=== PATIENT | female | born 1960 | race Caucasian/White ===

== ENCOUNTER 2022-04-21 13:19 | Inpatient (IN) ==
[2022-04-21] MEDS ORDERED: guaiFENesin/DM ER 600-30 MG TABLET PO PRN (16:05)
[2022-04-21] MEDS ORDERED: DEXTROSE 10% 250 ML BAG IV PRN (16:05)
[2022-04-21] MEDS ORDERED: hydrALAZINE 20 MG/1 ML VIAL IV PRN (16:05)
[2022-04-21] MEDS ORDERED: ONDANSETRON 4 MG/2 ML VIAL IV PRN (16:05)
[2022-04-21] MEDS ORDERED: NICOTINE 21 MG/24 HR PATCH TRANSDERM PRN (16:05)
[2022-04-21] MEDS ORDERED: diphenhydrAMINE CAP 25 MG CAPSULE PO PRN (16:05)
[2022-04-21] MEDS ORDERED: GLUCAGON 1 MG VIAL IM PRN (16:05)
[2022-04-21] MEDS ORDERED: ACETAMINOPHEN 325 MG TABLET PO PRN (16:05)
[2022-04-21] MEDS ORDERED: ALBUTEROL 2.5 MG/3 ML NEB RESP TX PRN (16:05)
[2022-04-21 16:25] LABS: Basophils # 0.1 10*3/uL (0.0-0.2); Basophils % 0.6 % (0.0-0.8); Eosinophils # 0.3 10*3/uL (0.0-0.87); Eosinophils % 2.6 % (0.00-10.9); Hematocrit 35.7 VOL% (35.7-47.0); Hemoglobin 10.8 GM/DL (12.0-16.0); Immature Granulocytes % 0.7 %; Immature Granulocytes Absolute 0.09 #; Lymphocytes # 1.7 10*3/uL (1.4-4.0); Lymphocytes % 13.1 % (21.3-54.2); Mean Corpuscular HGB Conc 30.3 GM/DL (32-36); Mean Corpuscular Volume 95.5 FL (87-102); Mean Platelet Volume 9.7 FL (9.6-12.0); Monocytes % 7.9 % (1.7-12.7); Neutrophils % 75.1 % (38.7-73.9); Platelet Count 264 T/CUMM (130-400); Red Blood Count 3.74 MC/CUMM (3.8-5.5); Red Cell Distribution Width 13.2 % (9.3-17.3); White Blood Count 13.2 T/CUMM (4-12)
[2022-04-21 16:40] LABS: Calcium 9.2 MG/DL (8.5-10.1); Osmolality,Calculated 280.5 MOS/KG (273-304); Potassium 4.4 MMOL/L (3.5-5.1)
[2022-04-21] MEDS: MORPHINE 2 MG/1 ML SYRINGE IV PRN ×3 (17:23→21:50)
[2022-04-21] MEDS: SODIUM CHLORIDE 0.9% 1,000 ML IV SCH (18:25)
[2022-04-22] MEDS: MORPHINE 2 MG/1 ML SYRINGE IV PRN ×4 (01:45→17:04)
[2022-04-22 05:29] LABS: Basophils # 0.1 10*3/uL (0.0-0.2); Basophils % 0.5 % (0.0-0.8); Eosinophils # 0.5 10*3/uL (0.0-0.87); Eosinophils % 4.6 % (0.00-10.9); Hematocrit 35.5 VOL% (35.7-47.0); Hemoglobin 10.6 GM/DL (12.0-16.0); Immature Granulocytes % 0.5 %; Immature Granulocytes Absolute 0.06 #; Lymphocytes # 2.2 10*3/uL (1.4-4.0); Lymphocytes % 18.5 % (21.3-54.2); Mean Corpuscular HGB Conc 29.9 GM/DL (32-36); Mean Corpuscular Volume 95.4 FL (87-102); Mean Platelet Volume 10.1 FL (9.6-12.0); Monocytes # 1.3 10*3/uL (0.11-0.8); Monocytes % 11.2 % (1.7-12.7); Neutrophils % 64.7 % (38.7-73.9); Platelet Count 233 T/CUMM (130-400); Red Blood Count 3.72 MC/CUMM (3.8-5.5); Red Cell Distribution Width 13.2 % (9.3-17.3); White Blood Count 11.7 T/CUMM (4-12)
[2022-04-22 05:51] LABS: Calcium 9.1 MG/DL (8.5-10.1); Osmolality,Calculated 281.4 MOS/KG (273-304); Potassium 4.2 MMOL/L (3.5-5.1)
[2022-04-22 05:55] LABS: Risk Ratio 2.94; VLDL Cholesterol 21.4 MG/DL
[2022-04-22] MEDS ORDERED: fentaNYL 100 MCG/2 ML VIAL ONE (08:07)
[2022-04-22] MEDS ORDERED: KETAMINE 500 MG/10 ML VIAL ONE (08:08)
[2022-04-22] MEDS ORDERED: buprenorphine HCL 0.3 MG/ML VIAL ONE (08:11)
[2022-04-22] MEDS ORDERED: BACITRACIN OINT 0.9 GM PACK TOP ONE (08:54)
[2022-04-22] MEDS ORDERED: MAGNESIUM HYDROXIDE SUSP 30 ML UDCUP PO PRN (09:41)
[2022-04-22] MEDS ORDERED: ceFAZolin 1,000 MG VIAL ONE (10:00)
[2022-04-22] MEDS ORDERED: SEVOFLURANE 1 UNIT/15 MINUTE INH ONE (10:02)
[2022-04-22] MEDS ORDERED: ROCURONIUM 50 MG/5 ML VIAL IV ONE (10:02)
[2022-04-22] MEDS ORDERED: propofoL 200 MG/20 ML VIAL IV ONE (10:02)
[2022-04-22] MEDS ORDERED: SUCCINYLCHOLINE 200 MG/10 ML VIAL ONE (10:02)
[2022-04-22] MEDS ORDERED: LIDOCAINE 2% 5 ML VIAL ONE (10:02)
[2022-04-22] MEDS ORDERED: DEXAMETHASONE 4 MG/1 ML VIAL ONE (10:08)
[2022-04-22] MEDS ORDERED: LIDOCAINE 1% 5 ML VIAL ONE (10:08)
[2022-04-22] MEDS ORDERED: BUPIVACAINE MPF 0.25% 30 ML VIAL ONE (10:08)
[2022-04-22] MEDS ORDERED: SUGAMMADEX 200 MG/2 ML VIAL IV ONE (10:21)
[2022-04-22] MEDS ORDERED: MEPERIDINE 50 MG/1 ML VIAL ONE (11:31)
[2022-04-22] MEDS: MEPERIDINE 25 MG/1 ML VIAL IV PRN ×2 (11:35→12:09)
[2022-04-22] MEDS ORDERED: HYDROmorphone 1 MG/1 ML SYRINGE IV PRN (11:37)
[2022-04-22] MEDS ORDERED: ONDANSETRON 4 MG/2 ML VIAL IV PRN (11:37)
[2022-04-22] MEDS: buPROPion 75 MG TABLET PO SCH ×2 (13:31→20:43)
[2022-04-22] MEDS: PANTOPRAZOLE 40 MG TABLET PO SCH (13:31)
[2022-04-22] MEDS: PROPRANOLOL 10 MG TABLET PO SCH ×2 (13:31→20:42)
[2022-04-22] MEDS: CALCIUM (CARBONATE) 500 MG TABLET PO SCH (13:31)
[2022-04-22] MEDS: LACTATED RINGERS 1,000 ML IV SCH (13:32)
[2022-04-22] MEDS: amLODIPine 5 MG TABLET PO SCH (15:37)
[2022-04-22 19:29] LABS: Mucus,Urine Occasional /LPF (Occasional); RBC,Urine 7 /HPF (0-4); Urine Appearance Clear (Clear); Urine Color Yellow (Yellow); Urine pH 5.5 (4.5-8.0)
[2022-04-22 19:30] LABS: Bilirubin,Urine Negative (Negative); Blood, Urine Moderate mg/dL (Negative); Glucose,Urine (UA) Negative (Negative); Ketones,Urine Trace mg/dL (Negative); Nitrite,Urine Negative (Negative); Protein,Urine Negative (Negative); Urine Urobilinogen 0.2 eU/dL (<2.0)
[2022-04-22] MEDS: ATORVASTATIN 20 MG TABLET PO SCH (20:42)
[2022-04-22] MEDS: DOCUSATE SODIUM 100 MG CAPSULE PO SCH (20:42)
[2022-04-23] MEDS ORDERED: FONDAPARINUX 2.5 MG/0.5 ML SYRINGE SUBCUT SCH (04:00)
[2022-04-23] MEDS: LACTATED RINGERS 1,000 ML IV SCH ×2 (04:21→17:36)
[2022-04-23 05:09] LABS: Basophils % 0.3 % (0.0-0.8); Eosinophils # 0.1 10*3/uL (0.0-0.87); Hematocrit 27.3 VOL% (35.7-47.0); Immature Granulocytes % 0.4 %; Immature Granulocytes Absolute 0.05 #; Lymphocytes # 1.6 10*3/uL (1.4-4.0); Lymphocytes % 14.1 % (21.3-54.2); Mean Corpuscular HGB Conc 30.8 GM/DL (32-36); Mean Corpuscular Volume 93.8 FL (87-102); Mean Platelet Volume 10.5 FL (9.6-12.0); Monocytes # 1.5 10*3/uL (0.11-0.8); Monocytes % 13.7 % (1.7-12.7); Neutrophils % 70.5 % (38.7-73.9); Red Cell Distribution Width 13.1 % (9.3-17.3); White Blood Count 11.2 T/CUMM (4-12)
[2022-04-23 05:26] LABS: Calcium 9.1 MG/DL (8.5-10.1); Osmolality,Calculated 282.3 MOS/KG (273-304); Potassium 3.9 MMOL/L (3.5-5.1)
[2022-04-23 05:27] LABS: Hemoglobin 8.4 GM/DL (12.0-16.0); Platelet Count 176 T/CUMM (130-400); Red Blood Count 2.91 MC/CUMM (3.8-5.5)
[2022-04-23] MEDS: buPROPion 75 MG TABLET PO SCH ×2 (08:16→20:21)
[2022-04-23] MEDS: PROPRANOLOL 10 MG TABLET PO SCH ×2 (08:17→20:21)
[2022-04-23] MEDS: CALCIUM (CARBONATE) 500 MG TABLET PO SCH (08:17)
[2022-04-23] MEDS: DOCUSATE SODIUM 100 MG CAPSULE PO SCH ×2 (08:17→20:20)
[2022-04-23] MEDS: amLODIPine 5 MG TABLET PO SCH (08:17)
[2022-04-23] MEDS: APIXABAN 2.5 MG TABLET PO SCH ×2 (08:17→20:21)
[2022-04-23] MEDS: PANTOPRAZOLE 40 MG TABLET PO SCH (08:17)
[2022-04-23] MEDS: SODIUM CHLORIDE 0.9% 1,000 ML IV SCH (10:07)
[2022-04-23] MEDS: POLYETHYLENE GLYCOL POWDER 17 GM PACK PO SCH ×2 (10:21→20:22)
[2022-04-23] MEDS: MORPHINE 2 MG/1 ML SYRINGE IV PRN ×3 (16:48→23:24)
[2022-04-23] MEDS: ATORVASTATIN 20 MG TABLET PO SCH (20:21)
[2022-04-24] MEDS: MORPHINE 2 MG/1 ML SYRINGE IV PRN ×2 (04:11→09:26)
[2022-04-24 05:55] LABS: Basophils # 0.1 10*3/uL (0.0-0.2); Basophils % 0.5 % (0.0-0.8); Eosinophils # 0.4 10*3/uL (0.0-0.87); Eosinophils % 3.1 % (0.00-10.9); Hematocrit 26.8 VOL% (35.7-47.0); Hemoglobin 8.3 GM/DL (12.0-16.0); Immature Granulocytes % 0.7 %; Immature Granulocytes Absolute 0.09 #; Lymphocytes # 1.3 10*3/uL (1.4-4.0); Lymphocytes % 9.7 % (21.3-54.2); Mean Corpuscular Volume 92.7 FL (87-102); Mean Platelet Volume 10.7 FL (9.6-12.0); Monocytes # 1.3 10*3/uL (0.11-0.8); Monocytes % 9.6 % (1.7-12.7); Neutrophils % 76.4 % (38.7-73.9); Platelet Count 205 T/CUMM (130-400); Red Blood Count 2.89 MC/CUMM (3.8-5.5); White Blood Count 13.4 T/CUMM (4-12)
[2022-04-24 06:13] LABS: Calcium 9.1 MG/DL (8.5-10.1); Osmolality,Calculated 276.7 MOS/KG (273-304); Potassium 3.8 MMOL/L (3.5-5.1)
[2022-04-24] MEDS ORDERED: MAGNESIUM SULF RIDER 2 GM/50 ML PREMIX IV ONE (07:06)
[2022-04-24] MEDS: LACTATED RINGERS 1,000 ML IV SCH ×2 (09:22→16:55)
[2022-04-24] MEDS: POLYETHYLENE GLYCOL POWDER 17 GM PACK PO SCH ×2 (09:23→20:38)
[2022-04-24] MEDS: buPROPion 75 MG TABLET PO SCH ×2 (09:23→20:26)
[2022-04-24] MEDS: APIXABAN 2.5 MG TABLET PO SCH ×2 (09:23→20:26)
[2022-04-24] MEDS: PROPRANOLOL 10 MG TABLET PO SCH ×2 (09:23→20:26)
[2022-04-24] MEDS: DOCUSATE SODIUM 100 MG CAPSULE PO SCH ×2 (09:24→20:38)
[2022-04-24] MEDS: PANTOPRAZOLE 40 MG TABLET PO SCH (09:24)
[2022-04-24] MEDS: CALCIUM (CARBONATE) 500 MG TABLET PO SCH (09:24)
[2022-04-24] MEDS: LINACLOTIDE 145 MCG CAPSULE PO SCH (09:24)
[2022-04-24] MEDS: amLODIPine 10 MG TABLET PO SCH (09:24)
[2022-04-24] MEDS: ATORVASTATIN 20 MG TABLET PO SCH (20:26)
[2022-04-25 05:46] LABS: Basophils # 0.1 10*3/uL (0.0-0.2); Basophils % 0.4 % (0.0-0.8); Eosinophils % 0.2 % (0.00-10.9); Hematocrit 26.4 VOL% (35.7-47.0); Hemoglobin 8.5 GM/DL (12.0-16.0); Immature Granulocytes % 0.8 %; Lymphocytes # 1.4 10*3/uL (1.4-4.0); Lymphocytes % 11.6 % (21.3-54.2); Mean Corpuscular HGB Conc 32.2 GM/DL (32-36); Mean Corpuscular Volume 90.7 FL (87-102); Monocytes # 1.3 10*3/uL (0.11-0.8); Monocytes % 10.9 % (1.7-12.7); NRBC # 0.02 10*3/uL; Neutrophils % 76.1 % (38.7-73.9); Platelet Count 218 T/CUMM (130-400); Red Blood Count 2.91 MC/CUMM (3.8-5.5); Red Cell Distribution Width 13.2 % (9.3-17.3); White Blood Count 11.9 T/CUMM (4-12)
[2022-04-25] MEDS: LACTATED RINGERS 1,000 ML IV SCH (06:44)
[2022-04-25 07:46] VITALS: BP 163/96
[2022-04-25] MEDS: DOCUSATE SODIUM 100 MG CAPSULE PO SCH (08:10)
[2022-04-25] MEDS: amLODIPine 10 MG TABLET PO SCH (08:10)
[2022-04-25] MEDS: LINACLOTIDE 145 MCG CAPSULE PO SCH (08:10)
[2022-04-25] MEDS: PANTOPRAZOLE 40 MG TABLET PO SCH (08:10)
[2022-04-25] MEDS: CALCIUM (CARBONATE) 500 MG TABLET PO SCH (08:10)
[2022-04-25] MEDS: buPROPion 75 MG TABLET PO SCH (08:10)
[2022-04-25] MEDS: PROPRANOLOL 10 MG TABLET PO SCH (08:10)
[2022-04-25] MEDS: APIXABAN 2.5 MG TABLET PO SCH (08:10)
[2022-04-25] MEDS: POLYETHYLENE GLYCOL POWDER 17 GM PACK PO SCH (08:11)
== END 2022-04-25 08:27 | DRG 481 ==
LOC: SUATTDRO 15:34 → N.3E 15:34
PROVIDERS: ADMIT Internal Medicine; ATTEND Hospitalist